=== PATIENT | male | born 1995 | race Caucasian/White ===

== ENCOUNTER 2019-07-29 05:13 | Emergency (ER) | payer BC ==
--- NOTE | 2019-07-29 05:49 | EDM.PDOC ---
ED HPI GENERAL MEDICAL PROBLEM - General Chief Complaint: Chest Pain Stated Complaint: SHORTNESS OF BREATH, CHEST PAIN Time Seen by Provider: 07/29/19 05:45 - History of Present Illness INITIAL COMMENTS - FREE TEXT/NARRATIVE: HISTORY AND PHYSICAL: History of present illness: Patient's 24-year-old white male presents with concern of chest pain this is vaguely described without associated shortness of breath palpitations nausea vomiting or diaphoresis he does not have it at this time it's been off and on over the last week. Patient states earlier in his life he did have an episode of intermittent tachycardia he did see a surgical scheduler for this event and was given a clean bill of health he does have a scheduled appointment with cardiology for recent events. Review of systems: As per history of present illness and below otherwise all systems reviewed and negative. Past medical history: As per history of present illness and as reviewed below otherwise noncontributory. Surgical history: As per history of present illness and as reviewed below otherwise noncontributory. Social history: No reported history of drug or alcohol abuse. Family history: As per history of present illness and as reviewed below otherwise noncontributory. Physical exam: HEENT: Atraumatic, normocephalic, pupils reactive, negative for conjunctival pallor or scleral icterus, mucous membranes moist, throat clear, neck supple, nontender, trachea midline. Lungs: Clear to auscultation, breath sounds equal bilaterally, chest nontender. Heart: S1S2, regular, negative for clicks, rubs, or JVD. Abdomen: Soft, nondistended, nontender. Negative for masses or hepatosplenomegaly. Negative for costovertebral tenderness. Pelvis: Stable nontender. Genitourinary: Deferred. Rectal: Deferred. Extremities: Atraumatic, negative for cords or calf pain. Neurovascular unremarkable. Neuro: Awake, alert, oriented. Cranial nerves II through XII unremarkable. Cerebellum unremarkable. Motor and sensory unremarkable throughout. Exam nonfocal. Diagnostics: CBC CMP troponin PT/INR chest x-ray EKG Therapeutics: None Impression: #1 atypical chest pain Definitive disposition and diagnosis as appropriate pending reevaluation and review of above. - Related Data Allergies Allergy/AdvReac Type Severity Reaction Status Date / Time No Known Allergies Allergy Verified 07/29/19 05:24 Home Meds: Home Meds . [No Known Home Meds] 03/16/15 [History] Past Medical History - Past Health History Medical/Surgical History: Denies Medical/Surgical History Social & Family History - Family History Family Medical History: Noncontributory Cardiac: Reports: CAD - Tobacco Use Smoking Status *Q: Current Every Day Smoker Years of Tobacco use: 2 Packs/Tins Daily: 1 - Recreational Drug Use Recreational Drug Use: No ED ROS GENERAL - Review of Systems Review Of Systems: Comprehensive ROS is negative, except as noted in HPI. ED EXAM, GENERAL - Physical Exam Exam: See Below (See dictation) Course - Vital Signs Last Recorded V/S: Last Vital Signs Temp 36.1 C 07/29/19 05:13 Pulse 53 L 07/29/19 05:13 Resp 18 07/29/19 05:13 BP 130/65 07/29/19 05:13 Pulse Ox 96 07/29/19 05:13 - Orders/Labs/Meds Orders: Active Orders 24 hr Category Date Time Status Cardiac Monitoring [RC] . DIRECTED Care 07/29/19 05:23 Active EKG Documentation Completion [RC] STAT Care 07/29/19 05:23 Active Chest 1V Frontal [CR] Stat Exams 07/29/19 05:24 Taken COMPREHENSIVE METABOLIC PN,CMP [CHEM] Stat Lab 07/29/19 05:30 Received INR,PT,PROTHROMBIN TIME [COAG] Stat Lab 07/29/19 05:30 Received TROPONIN I [CHEM] Stat Lab 07/29/19 05:30 Received Labs: Laboratory Tests 07/29/19 Range/Units 05:30 WBC 7.28 (4.0-11.0) K/uL RBC 5.09 (4.50-5.90) M/uL Hgb 16.2 (13.0-17.0) g/dL Hct 46.6 (38.0-50.0) % MCV 91.6 (80.0-98.0) fL MCH 31.8 (27.0-32.0) pg MCHC 34.8 (31.0-37.0) g/dL RDW Std Deviation 41.4 (28.0-62.0) fl RDW Coeff of Tucker 12 (11.0-15.0) % Plt Count 228 (150-400) K/uL MPV 10.40 (7.40-12.00) fL Neut % (Auto) 44.2 L (48.0-80.0) % Lymph % (Auto) 46.6 H (16.0-40.0) % [place] % (Auto) 7.7 (0.0-15.0) % Eos % (Auto) 1.2 (0.0-7.0) % Baso % (Auto) 0.3 (0.0-1.5) % Neut # (Auto) 3.2 (1.4-5.7) K/uL Lymph # (Auto) 3.4 H (0.6-2.4) K/uL [place] # (Auto) 0.6 (0.0-0.8) K/uL Eos # (Auto) 0.1 (0.0-0.7) K/uL Baso # (Auto) 0.0 (0.0-0.1) K/uL Nucleated RBC % 0.0 /100WBC Nucleated RBCs # 0 K/uL Departure - Departure Time of Disposition: 05:48 Disposition: Home, Self-Care 01 Condition: Good Clinical Impression: Atypical chest pain - Discharge Information Additional Instructions: The following information is given to patients seen in the emergency department who are being discharged to home. This information is to outline your options for follow-up care. We provide all patients seen in our emergency department with a follow-up referral. The need for follow-up, as well as the timing and circumstances, are variable depending upon the specifics of your emergency department visit. If you don't have a primary care physician on staff, we will provide you with a referral. We always advise you to contact your personal physician following an emergency department visit to inform them of the circumstance of the visit and for follow-up with them and/or the need for any referrals to a consulting specialist. The emergency department will also refer you to a specialist when appropriate. This referral assures that you have the opportunity for followup care with a specialist. All of these measure are taken in an effort to provide you with optimal care, which includes your followup. Under all circumstances we always encourage you to contact your private physician who remains a resource for coordinating your care. When calling for followup care, please make the office aware that this follow-up is from your recent emergency room visit. If for any reason you are refused follow-up, please contact the [facility] emergency department at and asked to speak to the emergency department charge nurse. Follow-up cardiology as discussed return as needed as discussed - My Orders Last 24 Hours: My Active Orders 07/29/19 05:23 Cardiac Monitoring [RC] . DIRECTED EKG Documentation Completion [RC] STAT 07/29/19 05:24 Chest 1V Frontal [CR] Stat 07/29/19 05:30 COMPREHENSIVE METABOLIC PN,CMP [CHEM] Stat INR,PT,PROTHROMBIN TIME [COAG] Stat TROPONIN I [CHEM] Stat - Assessment/Plan Last 24 Hours: My Active Orders 07/29/19 05:23 Cardiac Monitoring [RC] . DIRECTED EKG Documentation Completion [RC] STAT 07/29/19 05:24 Chest 1V Frontal [CR] Stat 07/29/19 05:30 COMPREHENSIVE METABOLIC PN,CMP [CHEM] Stat INR,PT,PROTHROMBIN TIME [COAG] Stat TROPONIN I [CHEM] Stat
[2019-07-29 05:55] LABS: BLOOD UREA NITROGEN,BUN 32 mg/dL (7.0-18.0); CARBON DIOXIDE,CO2 28.8 mmol/L (21.0-32.0); CHLORIDE,CL 101 mmol/L (98-107); GLUCOSE RANDOM 80 mg/dL (74-106); POTASSIUM,K 3.7 mmol/L (3.5-5.1); SODIUM,NA 138 mmol/L (136-148)
--- NOTE | 2019-07-29 05:56 | CR ---
INDICATION: Chest pain and shortness of breath. COMPARISON: 07/07/2018 FINDINGS: An AP frontal view of the chest is obtained at 0533 hours. The lungs remain clear. No focal or diffuse infiltrates are present. The heart remains normal in size. The mediastinum is normal in appearance. The osseous structures are normal in appearance for the patient`s age. IMPRESSION: Normal chest single-view. Dictated by Sherwin Rivera MD @ Jul 29 2019 5:52AM Signed by Dr. Sherwin Rivera @ Jul 29 2019 5:54AM
[2019-07-29 06:08] VITALS: BP 140/60; PULSE 62
== END 2019-07-29 06:00 | disposition home or self-care (01) ==
LOC: MW.ED 05:13
DX: R07.89 Other chest pain (principal); F17.210 Nicotine dependence, cigarettes, uncomplicated
CPT/HCPCS: 36415; 71045; 71045-26; 80053; 84484; 85025; 85610; 93005; 99285-25